=== PATIENT | male | born 1960 | race Caucasian/White ===

== ENCOUNTER 2018-06-29 08:01 | Inpatient (IN) | payer OTHER ==
[~2018-06-29] VITALS: Ht 152.4 cm; Wt 123.3 kg
[2018-06-29] VITALS (15 sets, daily range): BP systolic 111–125; BP diastolic 76–84; PULSE 63–75; RESP 14–23; Ht 152.4 cm; Wt 123.3 kg
[2018-06-29] MEDS ORDERED: ASPIRIN 325 MG TAB PO STA (08:12)
--- NOTE | 2018-06-29 08:45 | ERD ---
ER Documentation Chief Complaint Chief Complaint CHEST PAIN WITH LEFT SIDED WEAKNESS X 3 DAYS HPI 58-year-old male presents to the emergency department complaining of chest pain. Patient is Somali speaking. History is available via translation from the daughter as well as staff. Patient was in his usual state of health until this morning (different history from the triage note) when he awoke with a nonspecific chest discomfort in the left side of his chest. The pain came and went and when it was they are, it radiated to his left arm. He has not had this for 3 days, but awoke with it this morning. He does not have left-sided weakness, but has left-sided symptoms with pain radiating to the left side. He reports no focal weakness or numbness or headache. He does have a chronic right facial droop, but this is unchanged. Associated with the discomfort he reports no palpitations or shortness of breath. He reports no fevers, chills, hemoptysis. ROS All systems reviewed and are negative except as per history of present illness. Allergies Allergies: Coded Allergies: No Known Allergy (Unverified , 06/29/18) FmHx Noncontributory for chief complaint Physical Exam Vitals Vital Signs Date Temp Pulse Resp B/P (MAP) Pulse Ox O2 O2 Flow FiO2 Time Delivery Rate 06/29/18 Nasal 2 08:35 Cannula 06/29/18 98.3 77 18 136/71 99 08:02 (92) Physical Exam GENERAL: The patient is well developed and appropriate for usual state of health in no apparent distress HEENT: Pupils equal, round, and reactive to light. EOMI. There is no scleral icterus. NECK: C-spine is soft and supple, there is no meningismus. There is no cervical lymphadenopathy. LUNGS: Clear to auscultation bilaterally. There are no rales, wheezes or rhonchi. HEART: Regular rate and rhythm, no murmurs, clicks, rubs or gallops. ABDOMEN: Soft, non-tender, non-distended. There are bowel sounds in all four quadrants. No rebound or guarding. EXTREMITIES: There is no peripheral cyanosis or edema. No focal swelling or erythema. NEURO: The patient moves all four extremities with 5/5 strength. Cranial nerves II - XII are intact. Normal gait. Alert and oriented SKIN: There is no apparent rash or petechiae. HEME/LYMPHATIC: There is no evidence of excessive bruising or lymphedema. PSYCHIATRIC: The patient does not appear anxious or depressed. Result Diagram: 06/29/18 0822 Results 24 hrs Laboratory Tests Test 06/29/18 08:22 White Blood Count 8.2 10^3/ul Red Blood Count 4.14 10^6/ul Hemoglobin 14.3 g/dl Hematocrit 42.3 % Mean Corpuscular Volume 102.2 fl Mean Corpuscular Hemoglobin 34.5 pg Mean Corpuscular Hemoglobin Concent 33.8 g/dl Red Cell Distribution Width 12.2 % Platelet Count 295 10^3/UL Mean Platelet Volume 8.9 fl Immature Granulocytes % 0.500 % Neutrophils % 66.8 % Lymphocytes % 21.5 % Monocytes % 7.2 % Eosinophils % 3.3 % Basophils % 0.7 % Nucleated Red Blood Cells % 0.0 /100WBC Immature Granulocytes # 0.040 10^3/ul Neutrophils # 5.5 10^3/ul Lymphocytes # 1.8 10^3/ul Monocytes # 0.6 10^3/ul Eosinophils # 0.3 10^3/ul Basophils # 0.1 10^3/ul Nucleated Red Blood Cells # 0.0 10^3/ul Current Medications Medications Dose Sig/Johnny Start Time Status Last (Trade) Ordered Route PRN Stop Time Admin Dose Reason Admin Aspirin 325 mg ONCE STAT 06/29/18 DC 06/29/18 (Aspirin) PO 08:12 08:34 06/29/18 08:13 Procedures/MDM Patient was taken to a room, seen and evaluated. Comfort measures were initiated. Diagnostic tests were ordered and reviewed. After second EKG, code STEMI was initiated 0835 patient was reevaluated 3 LEAD RHYTHM STRIP: Normal sinus rhythm without ectopy Initial EK lead EKG reviewed by myself: Normal Sinus Rhythm Normal [place] and intervals No ST elevation, depression, or T wave inversion Impression: Normal EKG Repeat EKG interpreted by myself: Normal sinus rhythm Normal axis and intervals ST elevation in the inferolateral leads Impression: Inferolateral ST elevation [place] RADIOLOGY: Reviewed with the radiologist CONSULTATION: yardage caller sap sd analyst was notified case was discussed over the phone [id number] Arrangements were made for admission REEVALUATION: Patient is remained hemodynamic is stable. MEDICAL DECISION MAKIN-year-old male presents the emergency department with chest pain. Initial EKG was nondiagnostic and diagnostic workup was initiated. Repeat EKG demonstrated inferolateral ischemia. Patient is obviously high risk in this 58-year-old Somali male with hypertension. Code STEMI was initiated and patient will be brought expeditiously to the angiography suite for further diagnostic and therapeutic measures. CRITICAL CARE: Time:>35 minutes Patient has a significant chance of clinical deterioration Treatments/Evaluations: Close monitoring and treatment of unstable vital signs, cardiorespiratory, and neurologic status, while maintaining tight balance of fluid, respiratory, and cardiac interventions. Departure Diagnosis: Primary Impression: STEMI (ST elevation myocardial infarction) Condition: Critical JAMILAHJANET BARRIGA Jun 29, 2018 08:45
[2018-06-29] MEDS ORDERED: ATOR40TA68 PO (08:46)
[2018-06-29] MEDS ORDERED: METO-319 PO (08:46)
[2018-06-29] MEDS ORDERED: NITROGLYCERIN 2% 1 GM OINT PKT TD ONE (09:00)
[2018-06-29] MEDS ORDERED: NITROGLYCERIN 0.4 MG/HR PATCH TRANSDERM ONE (09:00)
[2018-06-29] MEDS ORDERED: NITROGLYCERIN 0.2 MG/HR PATCH TRANSDERM ONE (09:00)
--- NOTE | 2018-06-29 09:07 | CONS ---
Assessment/Plan Assessment/Plan Hospital Course (Demo Recall) Inferolateral STEMI: Though has had BP in the 220s at home, equal pulses and normal mediastinum on CXR so less likely dissection. Obstructive CAD most likely. To [facility] for urgent cath HTN: controlled here. At home up to 220s Tobacco use HL Obesity -to [employer] [facility] for emergent evaluation -recs to follow Consultation Date/Type/Reason Admit Date/Time Date of Consultation: Jun 29, 2018 Type of Consult Cardiology Reason for Consultation STEMI Requesting Provider: JANET ASKEW Date/Time of Note DATE: 06/29/18 TIME: 09:00 Hx of Present Illness 58 yo M with h/o HTN, tobacco use, HL, obesity, who presented with chest pain on and off for 3 days. He also notes his BP has been elevated at times to the 220s during this time period. The pain is not constant and does not radiate to the back. No neurologic complaints. The first EKG in the ER was normal and the second showed inferior and lateral ST elevations. His chest pain is waxing and waning but currently present. per HPI Past Medical History per hPI Home Meds Reported Medications Atorvastatin* (Atorvastatin*) 40 Mg Tablet, 40 MG PO QHS, #30 TAB 06/29/18 Metoprolol Succinate* (Toprol XL*) 50 Mg Tab.er.24h, 50 MG PO DAILY, #30 TAB 06/29/18 Medications Current Medications Nitroglycerin (Nitroglycerin 2% Oint) 0.5 inch ONCE ONCE TD ; Start 06/29/18 at 09:00; Stop 06/29/18 at 09:01 Allergies: Coded Allergies: No Known Allergy (Unverified , 06/29/18) Exam/Review of Systems Exam Vitals Vital Signs Date Temp Pulse Resp B/P (MAP) Pulse Ox O2 O2 Flow FiO2 Time Delivery Rate 06/29/18 Nasal 2 08:35 Cannula 06/29/18 98.3 77 18 136/71 99 08:02 (92) Constitutional: alert, oriented, distress (mild) Psych: nl mood/affect Head: normocephalic, atraumatic Neck: No jvd Respiratory: clear to auscultation, diminished breath sounds; No crackles/rales Cardiovascular: regular rate and rhythm, edema (trace); No systolic murmur Gastrointestinal: soft, non-tender; No distended Musculoskeletal: nl extremities to inspection Neurological: nl mental status, nl speech Results Result Diagram: 06/29/18 0822 06/29/18 0822 Results 24hrs Laboratory Tests Test 06/29/18 08:22 White Blood Count 8.2 Red Blood Count 4.14 L Hemoglobin 14.3 Hematocrit 42.3 Mean Corpuscular Volume 102.2 H Mean Corpuscular Hemoglobin 34.5 H Mean Corpuscular Hemoglobin Concent 33.8 Red Cell Distribution Width 12.2 Platelet Count 295 Mean Platelet Volume 8.9 Immature Granulocytes % 0.500 H Neutrophils % 66.8 Lymphocytes % 21.5 Monocytes % 7.2 Eosinophils % 3.3 Basophils % 0.7 Nucleated Red Blood Cells % 0.0 Immature Granulocytes # 0.040 H Neutrophils # 5.5 Lymphocytes # 1.8 Monocytes # 0.6 Eosinophils # 0.3 Basophils # 0.1 Nucleated Red Blood Cells # 0.0 Sodium Level 141 Potassium Level 4.6 Chloride Level 105 Carbon Dioxide Level 27 Anion Gap 9 Blood Urea Nitrogen 18 Creatinine 0.75 Est Glomerular Filtrat Rate mL/min > 60 Glucose Level 160 Calcium Level 9.8 Total Bilirubin 0.1 L Direct Bilirubin 0.00 Indirect Bilirubin 0.1 Aspartate Amino Transf (AST/SGOT) 42 Alanine Aminotransferase (ALT/SGPT) 44 Alkaline Phosphatase 56 Troponin I Pending Total Protein 7.9 Albumin 4.2 Globulin 3.70 H Albumin/Globulin Ratio 1.13 Medications Medication Current Medications Nitroglycerin (Nitroglycerin 2% Oint) 0.5 inch ONCE ONCE TD ; Start 06/29/18 at 09:00; Stop 06/29/18 at 09:01 SEBASTIAN SPARKS Jun 29, 2018 09:07
[2018-06-29] MEDS ORDERED: IODIXANOL LOCM 100 ML BTL ONE (09:08)
[2018-06-29] MEDS ORDERED: NITROGLYCERIN (IC) 100 MCG/ML INJ ONE (09:08)
[2018-06-29] MEDS ORDERED: LIDOCAINE 1% (MDV) 20 ML INJ ONE (09:08)
[2018-06-29] MEDS ORDERED: VERAPAMIL 5 MG INJ ONE (09:08)
[2018-06-29] MEDS ORDERED: FENTAnyl 50 MCG/ML VIAL ONE (09:08)
[2018-06-29] MEDS ORDERED: HEPARIN 1000 UNITS/ML 10 ML INJ ONE (09:08)
[2018-06-29] MEDS ORDERED: MIDAZOLAM 1 MG/ML 2 ML INJ ONE (09:08)
[2018-06-29] MEDS ORDERED: TICAGRELOR 90 MG TABLET ONE (09:37)
[2018-06-29] MEDS ORDERED: BIVALIRUDIN 250MG /NS 50 ML 100 ML IVPB ONE (09:58)
[2018-06-29] MEDS ORDERED: ACETAMINOPHEN 325 MG TAB PO PRN (10:00)
[2018-06-29] MEDS ORDERED: NACL 0.9% 3 ML SYG IV SCH (10:00)
[2018-06-29] MEDS ORDERED: ZOLPIDEM 5 MG TAB PO PRN (10:00)
[2018-06-29] MEDS ORDERED: morphine 2 MG INJ IV PRN ×2 (10:00→11:00)
[2018-06-29] MEDS ORDERED: DOCUSATE SODIUM 100 MG CAP PO PRN (10:00)
[2018-06-29] MEDS ORDERED: ONDANSETRON 4 MG INJ IV PRN (10:00)
--- NOTE | 2018-06-29 10:52 | OPR ---
Date/Time of Note Date/Time of Note DATE: 06/29/18 TIME: 10:41 Operative Report Procedure Date: Jun 29, 2018 Preoperative Diagnosis STEMI Postoperative Diagnosis STEMI Operation/Procedure Performed see details Surgeon see signature line Manager Fitness none Anesthesia Type: moderate sedation Estimated Blood Loss: minimal Transfusion none Specimen none Grafts/Implants none Complications none Procedure Description Procedure Date:06/29/18 Head Greenskeeper/surgeon: Sander Blanc MD. Procedures Performed: 1)Left heart catheterization with selective left and right coronary angiography. 2)Balloon angioplasty and stenting of the prox Cx with a Synergy 2.5 x 12 stent. 3)Balloon angioplasty and stenting of the mid OM with a Synergy 2.25 x 16 stent. Pre-operative Diagnosis:inferolateral STEMI Post-operative Diagnosis:same s/p PCI of Cx/OM Indications: 58 yo M with HL, smoking, HTN, presenting with chest pain and found to have an inferolateral STEMI Description of Procedure: After informed consent, the patient was brought to the cardiac catheterization lab. The procedure site was prepped and draped in usual manner. The patient was premedicated with versed 1 mg and fentanyl 50 mcg. 2 mL lidocaine was injected into the right wrist. Next using the posterior wall technique, the 6/5 estonian sheath was inserted into the right radial artery. Next using the JL3.5 and JR4, selective angiography of the left and right coronary arteries were obtained. The decision was made to proceed with PCI of the OM. A 6 estonian EBU 3.5 guide was advanced and engaged into the leftt coronary artery. After appropriate anticoagulation and antiplatelets were given, the BMW angioplasty wire was advanced past the lesion. Next the 2.0 X 12 balloon was used to dilate the OM and Cx lesions times 3 at a maximum of 8 citlali. Subsequently, the Synergy 2.25 x 16 stent was advanced to the OM lesion and deployed at 11 citlali. Then the Synergy 2.5 x 12 stent was advanced to the Cx lesion and deployed at 11 citlali. Next the OM stent was post dilated with the 2.5 x 8 and the Cx lesion with the 2.75 x 8 noncompliant balloons . Final angiography revealed OSMANY 3 flow, no edge dissection, and appropriate stent expansion. The pigtail was then advanced into the ventricle and hemodynamics obtained. Left ventricle angiography was not obtained. Next all equipment was removed and hemostasis was achieved by TR band. Findings: Anatomy/Hemodynamics: Left main:normal LAD:luminal irregularities Diagonal:luminal irregularities Circumflex: prox 90% Obtuse marginal: large vessel with mid-distal 100% RCA:luminal irregularities PDA:luminal irregularities PLV:luminal irregularities LV angiography: LV-Ao:no gradient LVEDP:9 Contrast used: 170 mL Fluoroscopy time:13.3 min Medications used: Versed 1 Fentanyl 50 Radial cocktail: 5000 heparin, 200 NTG, 2.5 verapamil Angiomax Brilinta 180mg Equipment used: 6 estonian EBU 3.5 guide BMW angioplasty wire 2 x 12 balloon Synergy 2.25 x 16 drug eluting stent Synergy 2.5 x 12 drug eluting stent 2.5 x 8 and 2.75 x 8 noncompliant balloons Estimated blood loss<10 mL. Specimen: none Grafts/implants: none Complications: none Assessment: Inferolateral STEMI: s/p PCI of culprit OM and prox Cx CAD: no residual lesions HTN Tobacco use HL Obesity Plan: -continue angiomax x 4 hours post STEMI -ASA 81mg lifelonbg -brilinta 90mg BID at least one year -lipitor 80mg -metoprolol succ 50mg daily -losartan 50mg -echo SANDER BLANC Jun 29, 2018 10:51
--- NOTE | 2018-06-29 11:10 | HP ---
DATE OF ADMISSION: 06/29/2018 CHIEF COMPLAINT: Chest pain. HISTORY OF PRESENT ILLNESS: A 58-year-old male with a history of hypertension, hyperlipidemia and ch ronic smoking, presents to the emergency room with complaint of on and off chest pressure radiating t o his left arm. The symptoms have been present for the last 3 days prior to admission. He denies na usea or vomiting. He reports mild shortness of breath. No fevers or chills. Initial evaluation in the emergency room included serial EKGs. The repeat EKG showed inferolateral S T elevation. Code TN was called and the patient is being taken to the [facility] [place]. PAST MEDICAL HISTORY: 1. Hypertension. 2. Hyperlipidemia. MEDICATIONS PRIOR TO ADMISSION: Metoprolol 50 mg p.o. twice a day and Lipitor 40 mg p.o. every evenin g. SOCIAL HISTORY: The patient admits to smoking on a daily basis as well as social drinking. PHYSICAL EXAMINATION: GENERAL: Well-developed, well-nourished male who is in mild distress. VITAL SIGNS: Stable. He is afebrile. HEENT: Extraocular muscles are intact. Pupils are equal and reactive to light bilaterally. Sclerae are nonicteric. Oropharynx is clear. NECK: Supple. No JVD, no carotic bruits. LUNGS: Clear to auscultation bilaterally. CARDIAC: Regular rate and rhythm. No murmurs or gallops. ABDOMEN: Soft, nontender, nondistended. Normoactive bowel sounds. EXTREMITIES: No clubbing, cyanosis or edema. NEUROLOGICAL: The patient has right-sided facial droop. Motor and sensory are intact in all extremi ties. Coordination is intact. White blood cell count is 8.2, hemoglobin 14.3, platelet count is 295 ,000. ASSESSMENT: 1. A 58-year-old male with acute inferolateral wall STEMI. 2. Hypertension. 3. Hyperlipidemia. 4. Nicotine addiction. PLAN: Admit to tele. The patient is going to the laborer golf [place] from the emergency room. Cardiology follo w up and intervention is appreciated. Dictated By: JENELLE LANE/SALMA Conf#: [id number] DID#: [id number]
[2018-06-29] MEDS: BIVALIRUDIN 250MG /NS 50 ML 50 ML IVPB SCH ×2 (11:22→12:39)
[2018-06-29] MEDS: SOD CHLORIDE 0.9% 1,000 ML IV SCH ×2 (11:25→21:13)
[2018-06-29] MEDS ORDERED: DIGOXIN 500 MCG INJ IV ONE (14:00)
[2018-06-29] MEDS: FAMOTIDINE 20 MG TAB PO SCH ×2 (15:58→20:35)
[2018-06-29] MEDS: METOPROLOL (XL) 50 MG TAB PO SCH (15:58)
[2018-06-29] MEDS: TICAGRELOR 90 MG TABLET PO SCH (20:34)
[2018-06-29] MEDS: ATORVASTATIN 80 MG TAB PO SCH (20:35)
[2018-06-29] MEDS ORDERED: TICAGRELOR 90 MG TABLET PO SCH (21:00)
[2018-06-30] VITALS (19 sets, daily range): BP systolic 107–166; BP diastolic 53–81; PULSE 45–80; RESP 7–24
[2018-06-30] MEDS: ASPIRIN 81 MG TAB PO SCH (08:50)
[2018-06-30] MEDS: METOPROLOL (XL) 50 MG TAB PO SCH (08:50)
[2018-06-30] MEDS: LOSARTAN 50 MG TAB PO SCH (08:51)
[2018-06-30] MEDS ORDERED: ASPIRIN 81 MG TAB PO SCH (09:00)
[2018-06-30] MEDS ORDERED: LOSARTAN 50 MG TAB PO SCH (09:00)
[2018-06-30] MEDS: TICAGRELOR 90 MG TABLET PO SCH ×2 (09:01→21:57)
--- NOTE | 2018-06-30 09:09 | PN ---
Date/Time of Note Date/Time of Note DATE: 06/30/18 TIME: 09:05 Subjective Chart was reviewed. Patient was seen and interviewed with the help of a electronics test engineer. He denies any chest pain. No shortness of breath. Afebrile vital signs are stable Neck supple, no JVD. Lungs are clear to auscultation bilaterally Cardiac is regular rate and rhythm. No murmurs or gallops Abdomen, soft nontender nondistended normoactive bowel sounds Extremities no edema Neurological nonfocal Objective Vitals Vital Signs Date Temp Pulse Resp B/P (MAP) Pulse Ox O2 O2 Flow FiO2 Time Delivery Rate 06/30/18 Nasal 2.0 07:35 Cannula 06/30/18 53 11 133/67 96 06:00 (89) 06/30/18 98.5 04:00 Intake and Output 06/29/18 06/29/18 06/30/18 1515:00 23:00 07:00 IntakeIntake Total 110 ml 425 ml OutputOutput Total 350 ml 2870 ml BalanceBalance 110 ml 75 ml -2870 ml Results Result Diagram: 06/29/1822 06/29/18 0822 Medications Medications Current Medications IV Flush (NS 3 ml) 3 ml PER PROTOCOL IV ; Start 06/29/18 at 10:00 Ondansetron HCl (Zofran Inj) 4 mg Q6H PRN IV NAUSEA/VOMITING; Start 06/29/18 at 10:00 Acetaminophen (Tylenol Tab) 650 mg Q6H PRN PO .PAIN 1-3 OR TEMP; Start 06/29/18 at 10:00 Morphine Sulfate (morphine) 2 mg Q4H PRN IV .PAIN 7-10; Start 06/29/18 at 10:00 Zolpidem Tartrate (Ambien) 5 mg QHS PRN PO .INSOMNIA; Start 06/29/18 at 10:00 Docusate Sodium (Colace) 100 mg Q12H PRN PO .CONSTIPATION; Start 06/29/18 at 10:00 Famotidine (Pepcid) 20 mg Q12 PO Last administered on 06/29/18at 20:35; Admin Dose 20 MG; Start 06/29/18 at 10:00 Metoprolol Succinate (Toprol Xl) 50 mg DAILY PO Last administered on 06/30/18at 08:50; Admin Dose 50 MG; Start 06/29/18 at 10:00 Atorvastatin Calcium (Lipitor) 80 mg QHS PO Last administered on 06/29/18at 20:35; Admin Dose 80 MG; Start 06/29/18 at 21:00 Morphine Sulfate (morphine) 2 mg Q2H PRN IV FOR NON CARDIAC PAIN (4-10); Start 06/29/18 at 11:00 Aspirin (Aspirin) 81 mg DAILY PO Last administered on 06/30/18at 08:50; Admin Dose 81 MG; Start 06/30/18 at 09:00 Ticagrelor (Brilinta) 90 mg BID PO Last administered on 06/30/18at 09:01; Admin Dose 90 MG; Start 06/29/18 at 21:00 Losartan Potassium (Cozaar) 50 mg DAILY PO Last administered on 06/30/18at 08:51; Admin Dose 50 MG; Start 06/30/18 at 09:00 Influenza Virus Vaccine Quadrival (Fluzone) 0.5 ml ONCE ONCE IM* ; Start 07/04/18 at 10:00; Stop 07/04/18 at 10:01 VTE Prophylaxis Risk score (from Nsg)>0 risk: 5 SCD applied (from Nsg): Yes Lines/Catheters IV Catheter Type: Saline Lock [place] in Place: No Assessment/Plan Assessment/Plan 58-year-old male with acute inferolateral STEMI Status post PCI and stent placement to circumflex and obtuse marginal Hypertension, well controlled Hyperlipidemia Nicotine addiction Moderate obesity Transfer to telemetry Continue present medical therapy Ambulate with PT I had a long discussion with patient regarding smoking cessation and decreasing alcohol consumption Case was discussed with his commercial engineer JENELLE HUNG MD Jun 30, 2018 09:09
[2018-06-30] MEDS: FAMOTIDINE 20 MG TAB PO SCH ×2 (10:52→21:51)
--- NOTE | 2018-06-30 11:44 | RADRPT ---
Echocardiogram Report Patient Name: BEV GILLPatient ID: [id number] : 1960 (58y 6m)Study Date: 06/29/2018 2:15:41 PM Gender: MAccession #: [id number] Tech: LE Location: Ref.Physician: SEBASTIAN BLANC Height(Cm): BSA: Weight(Kg): Quality: GoodAccount #: Procedures: Echocardiographic Report: Transthoracic echocardiogram with complete 2D, M-Mode, and doppler examination. Indications: STEMI. Measurements: 2D/M Mode Doppler Measurement Value Normal Range Measurement Value Normal Range LVIDd 2D 5.2 [ 4.2 - 5.8 ] cm PATRICK Vmax 2.0 [ 2.0 - 4.0 ] cm2 LVIDs 2D 3.5 [ 2.5 - 4.0 ] cm AV Mean Ramirez 1.3 [ 70.0 - 90.0 ] cm/sec LVPWd 2D 1.2 [ 0.6 - 1.0 ] cm AV Mean PG 7.0 [ 2.0 - 4.0 ] mmHg IVSd 2D 1.2 [ 0.6 - 1.0 ] cm AV Peak Ramirez 1.6 [ 100.0 - 170.0 ] cm/sec IVS/LVPW 2D 1.0 ratio AV Peak PG 11.0 [ 2.0 - 9.0 ] mmHg LVOT Diam 2.0 [ 2.3 - 2.9 ] cm AV VTI 34.2 cm LVOT Area 3.1 cm2 LVOT Peak Ramirez 1.0 [ 70.0 - 110.0 ] cm/sec LVOT Peak PG 4.0 [ 2.0 - 6.0 ] mmHg MV E Peak Ramirez 0.8 [ 60.0 - 130.0 ] cm/sec MV A Peak Ramirez 0.9 [ 100.0 - 120.0 ] cm/sec MV E/A 0.8 [ 0.8 - 1.5 ] ratio MV Decel Time 201 [ 104 - 258 ] msec Lat E` Ramirez 0.1 [ 10.0 - 15.0 ] cm/sec Med E` Ramirez 0.0 cm/sec MV E/A 0.8 [ 0.8 - 1.5 ] ratio PV Peak Ramirez 0.8 [ 40.0 - 80.0 ] cm/sec PV Peak PG 2.0 mmHg RA Pressure 3.0 mmHg Findings: Left Ventricle: Normal left ventricular systolic function. Normal left ventricular cavity size. Mild concentric left ventricular hypertrophy. Ejection fraction is visually estimated at 55-60 %. Tissue Doppler/Mitral Doppler indices are consistent with impaired relaxation (Stage I diastolic dysfunction). Right Ventricle: Normal right ventricular size. Normal right ventricular systolic function. Left Atrium: There is mild enlargement of left atrium. Right Atrium: The right atrium is normal in size. Mitral Valve: Normal appearance and function of the mitral valve with trace physiologic regurgitation. Aortic Valve: Normal appearance of the aortic valve. No significant aortic stenosis or insufficiency. Tricuspid Valve: Normal appearance and function of the tricuspid valve with trace physiologic regurgitation. Unable to obtain RVSP due to minimal presence of tricuspid regurgitation. Pulmonic Valve: Normal pulmonic valve appearance. Pericardium: Normal pericardium with no significant pericardial effusion. No pleural effusion noted. Aorta: Normal aortic root. IVC: Normal size and normal respiratory collapse consistent with normal right atrial pressure. Conclusions: Normal left ventricular systolic function. Normal left ventricular cavity size. Mild concentric left ventricular hypertrophy. Ejection fraction is visually estimated at 55-60 %. Tissue Doppler/Mitral Doppler indices are consistent with impaired relaxation (Stage I diastolic dysfunction). No significant valvular stenosis or regurgitation seen. Unable to obtain RVSP due to minimal presence of tricuspid regurgitation. Normal size and normal respiratory collapse consistent with normal right atrial pressure. Electronically Signed By: Sebastian Blanc 2018-06-30 11:43:24 PST
--- NOTE | 2018-06-30 12:41 | CONS ---
Assessment/Plan Assessment/Plan Hospital Course (Demo Recall) Inferolateral STEMI: s/p PCI of culprit OM and prox Cx. Echo with preserved EF CAD: no residual lesions HTN Tobacco use HL Obesity -plan for d/c tomorrow am if still doing well -ASA 81mg lifelong -brilinta 90mg BID at least one year -lipitor 80mg -metoprolol succ 50mg daily -losartan 50mg Consultation Date/Type/Reason Admit Date/Time Jun 29, 2018 at 08:59 Initial Consult Date 06/29/18 Type of Consult Cardiology Requesting Provider: JANET ASKEW Date/Time of Note DATE: 06/30/18 TIME: 12:40 24 HR Interval Summary Free Text/Dictation Doing well. No chest pain. No SOB. Transferred to tele Exam/Review of Systems Exam Vitals Vital Signs Date Temp Pulse Resp B/P (MAP) Pulse Ox O2 O2 Flow FiO2 Time Delivery Rate 06/30/18 69 12:07 06/30/18 Nasal 2.0 11:41 Cannula 06/30/18 98.5 17 113/71 97 11:24 (85) Intake and Output 06/29/18 06/29/18 06/30/18 1515:00 23:00 07:00 IntakeIntake Total 110 ml 425 ml OutputOutput Total 350 ml 2870 ml BalanceBalance 110 ml 75 ml -2870 ml Constitutional: alert, oriented Psych: no complaints, nl mood/affect Neck: supple; No jvd Respiratory: clear to auscultation; No crackles/rales Cardiovascular: regular rate and rhythm; No edema Gastrointestinal: soft, non-tender Neurological: nl mental status, nl speech Results Result Diagram: 06/29/1822 06/29/18 0822 Results 24hrs Laboratory Tests Test 06/29/18 20:36 06/30/18 04:35 Creatine Kinase 133 Creatine Kinase Index 3.0 Creatinine Kinase MB (Mass) 3.93 H Troponin I 0.538 *H Hemoglobin A1c 5.8 Medications Medication Current Medications IV Flush (NS 3 ml) 3 ml PER PROTOCOL IV ; Start 06/29/18 at 10:00 Ondansetron HCl (Zofran Inj) 4 mg Q6H PRN IV NAUSEA/VOMITING; Start 06/29/18 at 10:00 Acetaminophen (Tylenol Tab) 650 mg Q6H PRN PO .PAIN 1-3 OR TEMP; Start 06/29/18 at 10:00 Morphine Sulfate (morphine) 2 mg Q4H PRN IV .PAIN 7-10; Start 06/29/18 at 10:00 Zolpidem Tartrate (Ambien) 5 mg QHS PRN PO .INSOMNIA; Start 06/29/18 at 10:00 Docusate Sodium (Colace) 100 mg Q12H PRN PO .CONSTIPATION; Start 06/29/18 at 10:00 Famotidine (Pepcid) 20 mg Q12 PO Last administered on 06/30/18at 10:52; Admin Dose 20 MG; Start 06/29/18 at 10:00 Metoprolol Succinate (Toprol Xl) 50 mg DAILY PO Last administered on 06/30/18at 08:50; Admin Dose 50 MG; Start 06/29/18 at 10:00 Atorvastatin Calcium (Lipitor) 80 mg QHS PO Last administered on 06/29/18at 20:35; Admin Dose 80 MG; Start 06/29/18 at 21:00 Morphine Sulfate (morphine) 2 mg Q2H PRN IV FOR NON CARDIAC PAIN (4-10); Start 06/29/18 at 11:00 Aspirin (Aspirin) 81 mg DAILY PO Last administered on 06/30/18 08:50; Admin Dose 81 MG; Start 06/30/18 at 09:00 Ticagrelor (Brilinta) 90 mg BID PO Last administered on 06/30/18 09:01; Admin Dose 90 MG; Start 06/29/18 at 21:00 Losartan Potassium (Cozaar) 50 mg DAILY PO Last administered on 06/30/18at 08:51; Admin Dose 50 MG; Start 06/30/18 at 09:00 Influenza Virus Vaccine Quadrival (Fluzone) 0.5 ml ONCE ONCE IM* ; Start 07/04/18 at 10:00; Stop 07/04/18 at 10:01 SEBASTIAN SPARKS Jun 30, 2018 12:41
[2018-06-30] MEDS: ATORVASTATIN 80 MG TAB PO SCH (21:50)
[2018-07-01] VITALS (7 sets, daily range): BP systolic 111–130; BP diastolic 68–73; PULSE 66–94; RESP 16–17
[2018-07-01] MEDS: FAMOTIDINE 20 MG TAB PO SCH (08:33)
[2018-07-01] MEDS: METOPROLOL (XL) 50 MG TAB PO SCH (08:33)
[2018-07-01] MEDS: ASPIRIN 81 MG TAB PO SCH (08:33)
[2018-07-01] MEDS: LOSARTAN 50 MG TAB PO SCH (08:33)
[2018-07-01] MEDS: TICAGRELOR 90 MG TABLET PO SCH (08:36)
[2018-07-01] MEDS ORDERED: ATOR-2 PO (09:03)
[2018-07-01] MEDS ORDERED: ASPI-831 PO (09:03)
[2018-07-01] MEDS ORDERED: LOSA50TA2 PO (09:03)
[2018-07-01] MEDS ORDERED: TICA90TA PO (09:03)
--- NOTE | 2018-07-01 09:21 | PDOCDIS ---
Discharge Instructions DIAGNOSIS Discharge Diagnosis 58-year-old male with acute inferolateral STEMI Status post PCI and stent placement to circumflex and obtuse marginal Hypertension Hyperlipidemia Moderate obesity Chronic smoker 58-year-old male with multiple noted cardiac risk factors, presented to ER with complaint of chest pain on and off times 3 days. Repeat EKG in the ER showed inferolateral STEMI. Patient was taken to the Pharmacy Informatics Specialist urgently. He underwent PCI and stent placement to circumflex and obtuse marginal. There were no intraoperative or postoperative complications. Patient remained free of chest pain during the hospitalization. I had a long talk with him via tilting saw operator regarding smoking cessation and lifestyle changes. He is in a stable condition for discharge. Case was discussed with the behavior management specialist who agreed with discharge planning. Physical exam was unremarkable CONDITION [id number] Patient Condition: Ubfbs1s Good HOME CARE INSTRUCTIONS: [id number] Diet Instructions: Sceko2r Low Fat /Cholesterol ACTIVITY: [id number] Activity Restrictions: Teuix2r Slowly Increase Activity Rest between Activity FOLLOW UP/APPOINTMENTS Follow-up Plan PCP in [address] Blanc in 1 week OTHER ORDERS: Other Orders: Stop smoking JENELLE HUNG MD Jul 01, 2018 09:21
[2018-07-01] MEDS ORDERED: CLOP75TA27 PO (09:25)
--- NOTE | 2018-07-01 16:28 | CONS ---
Assessment/Plan Assessment/Plan Hospital Course (Demo Recall) Inferolateral STEMI: s/p PCI of culprit OM and prox Cx. Echo with preserved EF CAD: no residual lesions HTN Tobacco use HL Obesity -ok for d/c -ASA 81mg lifelong -if brilinta is switched to plavix, should be given 300mg load then 75mg daily. Discussed with PMD prior to discharge -lipitor 80mg -metoprolol succ 50mg daily -losartan 50mg Consultation Date/Type/Reason Admit Date/Time Jun 29, 2018 at 08:59 Initial Consult Date 06/29/18 Type of Consult Cardiology Requesting Provider: JANET ASKEW Date/Time of Note DATE: 07/01/18 TIME: 16:26 24 HR Interval Summary Free Text/Dictation No events. Ambulated without symptoms. Insurance issue with Brilinta so PMD would like to switch to plavix on discharge. Exam/Review of Systems Exam Vitals Vital Signs Date Temp Pulse Resp B/P (MAP) Pulse Ox O2 O2 Flow FiO2 Time Delivery Rate 07/01/18 71 12:01 07/01/18 98.8 16 115/68 95 11:42 (84) 06/30/18 Nasal 2.0 20:00 Cannula Intake and Output 06/30/18 06/30/18 07/01/18 1414:59 22:59 06:59 IntakeIntake Total 300 ml 400 ml 250 ml OutputOutput Total 375 ml BalanceBalance -75 ml 400 ml 250 ml Constitutional: alert, oriented Psych: no complaints, nl mood/affect Head: normocephalic, atraumatic Neck: supple; No jvd Respiratory: clear to auscultation; No crackles/rales Cardiovascular: regular rate and rhythm; No edema Gastrointestinal: soft, non-tender Neurological: nl mental status, nl speech Results Result Diagram: 06/29/1882106/29/18821 SEBASTIAN SPARKS Jul 01, 2018 16:28
[2018-07-04] MEDS ORDERED: INFLUENZA VIRUS VACCINE 0.5 ML (DISPENSING) IM* ONE (10:00)
== END 2018-07-01 13:00 | disposition home or self-care (01) | DRG 247 ==
LOC: E/R 08:01 → ICU 08:59 → E/R 09:16 → TEL 06-30 11:15
PROVIDERS: ADMIT Internal Medicine; ATTEND Internal Medicine
PROC: 4A023N7 Measurement of Cardiac Sampling and Pressure, Left Heart, Percutaneous Approach (ICD-10-PCS; 2018-06-29)
PROC: B211YZZ Fluoroscopy of Multiple Coronary Arteries using Other Contrast (ICD-10-PCS; 2018-06-29)
PROC: 027135Z Dilation of Coronary Artery, Two Arteries with Two Drug-eluting Intraluminal Devices, Percutaneous Approach (ICD-10-PCS; principal; 2018-06-29 09:00)
DX: I21.19 ST elevation (STEMI) myocardial infarction involving other coronary artery of inferior wall (principal); Z68.43 Body mass index [BMI] 50.0-59.9, adult; I10 Essential (primary) hypertension; E78.5 Hyperlipidemia, unspecified; I25.10 Atherosclerotic heart disease of native coronary artery without angina pectoris; F17.200 Nicotine dependence, unspecified, uncomplicated; E66.9 Obesity, unspecified
CPT/HCPCS: 36415; 71045; 80053; 82550; 82553; 83036; 84484; 85025; 87081; 92928; 93005; 93306; 93458; 97161; C1725; C1874; C1887; C9606; J0583; J1644; J2250; J3010; J7030; Q9967